=== PATIENT | male | born 2005 | race Asian ===

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

== ENCOUNTER → 2023-10-15 13:46 | Outpatient (CLI) | payer BC, SELFPAY ==
--- NOTE | 2023-10-15 13:48 | DI.MRI.S_ITS ---
PROCEDURE: MR KNEE LT WO CON INDICATIONS: INJURY OF LEFT KNEE TECHNIQUE: Noncontrast sagittal PD fast spin echo and T2 fast spin echo with fat saturation, sagittal 3-D FLASH with fat saturation; coronal T1 spin echo and PD fast spin echo with fat saturation, and axial PD fast spin echo with fat saturation through the knee. COMPARISON: [facility], MR, KNEE WITHOUT CONTRAST, 08/15/2017, 16:11. FINDINGS: Image quality: Excellent. Menisci: The medial and lateral menisci demonstrate normal morphology and internal signal. The meniscal root ligaments appear intact. Cruciate ligaments: The anterior and posterior cruciate ligaments appear intact. Medial structures: The medial collateral ligament appears thickened with surrounding soft tissue edema near its femoral insertion. Intrasubstance T2 hyperintense signal is also seen. Visualized portions of the pes anserinus tendons appear normal. No abnormal bursal fluid. Lateral structures: The lateral collateral ligament is mildly thickened at its femoral insertion. The long and short heads of the biceps femoris tendon appear intact. The popliteus tendon appears normal. Iliotibial band appears normal. Anterior structures: The quadriceps and patellar tendons appear intact. Patellar alignment is normal. No femoral trochlear dysplasia or ventral trochlear prominence. No edema in the infrapatellar fat pad. Bones and cartilage: There is marrow edema involving posterior and lateral portion of lateral femoral condyle without definite fracture line. No other area of abnormal marrow signal.. The cartilage of the medial and lateral femorotibial compartments, as well as the patellofemoral compartment, appears normal in thickness. Joint space: There is small knee joint fluid. No Anne's cyst. Normal appearing synovial plicae are incidentally noted. IMPRESSION: 1. Bony contusion involving posterior and lateral portion of lateral femoral condyle without definite fracture line. No other area of abnormal marrow signal. Articulating cartilages are intact. Small joint effusion, no gross loose bodies. 2. The cruciate ligaments are intact. 3. Low to moderate grade MCL sprain/partial-thickness tear. Low-grade LCL sprain. 4. No evidence of focal meniscal tear. Dictated by: Thomas Valdes M.D. on 10/15/2023 at 15:54 Approved by: Thomas Valdes M.D. on 10/15/2023 at 20:28
== END ==
PROVIDERS: PCP Family Medicine; Referring Provider Orthopaedic Surgery; Visit Provider Orthopaedic Surgery
DX: S80.02XA Contusion of left knee, initial encounter (principal); S83.412A Sprain of medial collateral ligament of left knee, initial encounter; S83.422A Sprain of lateral collateral ligament of left knee, initial encounter; S89.92XA Unspecified injury of left lower leg, initial encounter; M25.462 Effusion, left knee; X58.XXXA Exposure to other specified factors, initial encounter
CPT/HCPCS: 73721